=== PATIENT | male | born 1995 | race Hispanic/Latino ===

== ENCOUNTER 2017-05-06 06:55 | Emergency (ER) | payer MEDICAID, OTHER ==
[2017-05-06] MEDS ORDERED: Iohexol 240 (50 ml) PO STA (08:13)
[2017-05-06] MEDS ORDERED: Sodium Chloride 0.9% 1,000 ML IV STA (08:15)
--- NOTE | 2017-05-06 08:25 | ED PDOC ---
HPI: Abdomen Time Seen by Provider: 05/06/17 07:47 Chief Complaint (Nursing): Abdominal Pain Chief Complaint (Provider): Nausea History Per: Patient History/Exam Limitations: no limitations Onset/Duration Of Symptoms: Hrs (this morning) Location Of Pain/Discomfort: RLQ, LLQ Associated Symptoms: denies: Fever, Vomiting, Diarrhea Additional Complaint(s): Patient is a 21 y/o male with no past medical history who presents to the ED complaining of nausea since this morning, with associated lower abdominal pain. Patient denies any fever, diarrhea, vomiting, or further complaints. PCP: [facility] Past Medical History Reviewed: Historical Data, Nursing Documentation, Vital Signs Vital Signs: Last Vital Signs Temp 98.8 F 05/06/17 12:41 Pulse 70 05/06/17 12:41 Resp 18 05/06/17 12:41 BP 138/78 05/06/17 12:41 Pulse Ox 99 05/06/17 12:41 - Medical History PMH: No Chronic Diseases Denies: Diabetes, Hepatitis, HIV, HTN, Seizures, Sexually Transmitted Disease - Surgical History Surgical History: No Surg Hx - Family History Family History: States: No Known Family Hx - Social History Current smoker - smoking cessation education provided: No Ex-Smoker (has not smoked in the last 12 months): No Alcohol: None Drugs: Denies - Home Medications Home Medications: Ambulatory Orders Medication Instructions Recorded Ibuprofen [Motrin] 400 mg PO Q8 #20 tab 01/06/15 Ondansetron ODT [Zofran ODT] 4 mg PO Q8H PRN #20 odt 05/06/17 Sulfamethoxazole/Trimethoprim 1 tab PO BID #9 tab 05/06/17 [Bactrim DS 800 mg-160 mg] - Allergies Allergies/Adverse Reactions: Allergies Allergy/AdvReac Type Severity Reaction Status Date / Time No Known Allergies Allergy Verified 01/06/15 10:20 Review of Systems ROS Statement: Except As Marked, All Systems Reviewed And Found Negative Constitutional: Negative for: Fever Gastrointestinal: Positive for: Nausea, Abdominal Pain (lower). Negative for: Vomiting, Diarrhea Physical Exam - Reviewed Nursing Documentation Reviewed: Yes Vital Signs Reviewed: Yes - Physical Exam Appears: Positive for: No Acute Distress Head Exam: Positive for: ATRAUMATIC, NORMOCEPHALIC Skin: Positive for: Normal Color, Warm, Dry Eye Exam: Positive for: Normal appearance, EOMI, PERRL Neck: Positive for: Normal, Painless ROM, Supple Cardiovascular/Chest: Positive for: Regular Rate, Rhythm. Negative for: Murmur Respiratory: Positive for: Normal Breath Sounds. Negative for: Respiratory Distress Gastrointestinal/Abdominal: Positive for: Soft, Tenderness (Bilateral lower quadrant tenderness, left more than right) Back: Positive for: Normal Inspection. Negative for: L CVA Tenderness, R CVA Tenderness, Vertebral Tenderness Extremity: Positive for: Normal ROM. Negative for: Pedal Edema, Deformity Neurologic/Psych: Positive for: Alert, Oriented (x3). Negative for: Motor/ Sensory Deficits - Laboratory Results Result Diagrams: 05/06/17 08:36 05/06/17 08:36 - ECG O2 Sat by Pulse Oximetry: 100 (RA) Pulse Ox Interpretation: Normal Medical Decision Making Medical Decision Makin:13 Initial Impression: Gastroenteritis, Appendicitis Initial Plan: --CT Abd Pelvis PO & IV Contrast --CMP --ED Urine Dipstick --CBC --Sodium chloride 0.9% IV 1,000 mls/hr --Iohexol 50 ml PO --Zofran Inj 4 mg IV --Urinalysis Scribe Attestation: Documented by Parker Palma, acting as a scribe for Viv Ma MD Provider Scribe Attestation: All medical record entries made by the Scribe were at my direction and personally dictated by me. I have reviewed the chart and agree that the record accurately reflects my personal performance of the history, physical exam, medical decision making, and the department course for this patient. I have also personally directed, reviewed, and agree with the discharge instructions and disposition. Disposition - Clinical Impression Clinical Impression: Colitis - Disposition Referrals: [facility] [Outside] Disposition: Routine/Home Disposition Time: 12:27 Condition: STABLE Prescriptions: Ondansetron ODT [Zofran ODT] 4 mg PO Q8H PRN #20 odt PRN Reason: Nausea/Vomiting Sulfamethoxazole/Trimethoprim [Bactrim DS 800 mg-160 mg] 1 tab PO BID #9 tab Instructions: Colitis (ED) Forms: [employer] ([place]i)
[2017-05-06 08:41] LABS: BASO # 0.1 K/uL (0.0-0.2); BASO % 0.6 % (0.0-2.0); EOS # 0.2 K/uL (0.0-0.7); EOS % 1.8 % (0.0-4.0); HEMOGLOBIN 17.2 g/dL (12.0-18.0); LYMPH # 1.9 K/uL (1.0-4.3); LYMPH % 21.2 % (20.0-40.0); MEAN CELL VOLUME 89.2 fl (80.0-94.0); MEAN CORPUSCULAR HEMOGLOBIN 31.9 pg (27.0-31.0); MEAN CORPUSCULAR HGB CONC 35.7 g/dL (33.0-37.0); MEAN PLATELET VOLUME 7.3 fl (7.2-11.7); MONO # 0.9 K/uL (0.0-0.8); MONO % 9.8 % (0.0-10.0); NEUT # 5.9 K/uL (1.8-7.0); NEUT % 66.6 % (50.0-75.0); RBC 5.4 Mil/uL (4.40-5.90); RED CELL DISTRIBUTION WIDTH 12.6 % (11.5-14.5); WHITE BLOOD COUNT 8.9 K/uL (4.8-10.8)
[2017-05-06 08:56] LABS: ALBUMIN 4.7 g/dL (3.5-5.0); ALT/SGPT 65 U/L (21-72); AST/SGOT 35 U/L (17-59); BLOOD UREA NITROGEN 11 mg/dl (9-20); CALCIUM 9.4 mg/dL (8.4-10.2); GFR AFRICAN-AMERICAN > 60; GFR NON-AFRICAN AMERICAN > 60
[2017-05-06 09:03] LABS: ALB/GLOB RATIO 1.2 (1.0-2.1)
[2017-05-06] MEDS ORDERED: Sodium Chloride 0.9% 50 ML IV ONE (10:18)
[2017-05-06] MEDS ORDERED: Iohexol 300 100 ML IJ ONE (10:18)
[2017-05-06 11:43] LABS: URINE BILIRUBIN NEGATIVE (NEGATIVE); URINE BLOOD NEGATIVE (NEGATIVE); URINE CLARITY CLEAR (Clear); URINE COLOR YELLOW (YELLOW); URINE GLUCOSE (UA) NEG (Normal); URINE LEUKOCYTE ESTERASE NEG Leu/uL (Negative); URINE NITRATE NEGATIVE (NEGATIVE); URINE PROTEIN NEGATIVE (NEGATIVE); URINE UROBILINOGEN 0.2-1.0 mg/dL (0.2-1.0)
--- NOTE | 2017-05-06 11:50 | CT ---
PROCEDURE: CT Abdomen and Pelvis with oral and IV contrast. HISTORY: BLQ pain, nausea COMPARISON: None available. TECHNIQUE: Contiguous axial images of the abdomen and pelvis. Oral and IV contrast was administered. Coronal and Sagittal reformats generated and reviewed. Contrast dose: 95 mL Omnipaque 300 Radiation dose: Total exam DLP = 1033.53 mGy-cm. This CT exam was performed using one or more of the following dose reduction techniques: Automated exposure control, adjustment of the mA and/or kV according to patient size, and/or use of iterative reconstruction technique. FINDINGS: LOWER THORAX: No visible consolidation, pleural effusion, or pneumothorax. LIVER: 7 x 16 mm hyperdense/enhancing focus within the anterior left hepatic lobe (series 3, image 34), indeterminate. GALLBLADDER AND BILE DUCTS: Unremarkable. PANCREAS: Unremarkable. SPLEEN: Unremarkable. ADRENALS: Unremarkable. KIDNEYS AND URETERS: The kidneys enhance symmetrically. Mild fullness of bilateral renal collecting systems. No obstructing calculus identified. BLADDER: The urinary bladder appears unremarkable. REPRODUCTIVE: Unremarkable. APPENDIX: The appendix appears within normal limits of caliber. BOWEL: The stomach is nondistended. The bowel loops appear within normal limits of caliber without evidence of intestinal obstruction. Thick-walled left colon may be exaggerated by under distension ; correlate clinically for possibility of colitis (i.e. infectious, inflammatory, ischemic). PERITONEUM: No significant free fluid. No definite free air. LYMPH NODES: Prominent lymph nodes within the mesentery/ pericecal region. No bulky lymphadenopathy identified. VASCULATURE: No aortic aneurysm. BONES: No acute osseous abnormality is detected. OTHER FINDINGS: Small fat containing right inguinal hernia. Tiny fat containing umbilical hernia. IMPRESSION: Thick-walled left colon may be exaggerated by under distension ; correlate clinically for possibility of colitis (i.e. infectious, inflammatory, ischemic). The appendix appears within normal limits of caliber. Prominent lymph nodes within the mesentery/ pericecal region, nonspecific. Mild fullness of bilateral renal collecting systems. No obstructing calculus identified. 7 x 16 mm hyperdense/enhancing focus within the anterior left hepatic lobe (series 3, image 34), indeterminate. If indicated, further characterization may be considered with dedicated cross-sectional imaging of the liver. Small fat containing right inguinal hernia. Tiny fat containing umbilical hernia. Additional incidental findings as above.
[2017-05-06] MEDS ORDERED: Tmp-Smz 800 mg-160 mg DS Tab PO STA (12:24)
[2017-05-06] MEDS ORDERED: Tmp-Smz 800 mg-160 mg DS Tab ONE (12:34)
[2017-05-06 12:43] VITALS: BP 138/78; PULSE 70; RESP 18; TEMP 98.8
[2017-05-10 13:26] VITALS: O2SAT 100
== END 2017-05-06 12:44 | disposition home or self-care (01) ==
LOC: H.ER 06:55
DX: K52.9 Noninfective gastroenteritis and colitis, unspecified (principal); K35.80 Unspecified acute appendicitis
CPT/HCPCS: 74177; 80053; 81003; 85025; 96374; 99282; J2405; J7040; Q9966; Q9967